=== PATIENT | male | born 1950 | race Caucasian/White ===

== ENCOUNTER → 2017-06-20 | Outpatient (CLI) | payer OTHER ==
[2017-06-20 12:37] LABS: CALCIUM 10.4 mg/dl (8.5-10.1)
[2017-06-20 13:40] LABS: CALCIUM URINE 13.6 mg/dl
== END | disposition home or self-care (01) ==
LOC: C.LAB1850 10:10
PROVIDERS: ATTEND Internal Medicine Endocrinology, Diabetes & Metabolism
DX: E83.52 Hypercalcemia (principal)

== ENCOUNTER → 2017-07-12 | Outpatient (CLI) | payer OTHER ==
--- NOTE | 2017-07-19 10:57 | CODING QUERY MEDICAL NECESSITY ---
CQSUPPORTING DIAGNOSIS NEEDED A supporting diagnosis is required for the test/procedure performed on this patient in order for us to be reimbursed by the patient's insurance. Please provide a supporting diagnosis for the following test/procedure listed below next to the test name along with your signature. *If there is no additional diagnosis for this patient that would support the following test/procedure please document that below next to the test/procedure. Test(s)/Procedure(s) that require a supporting diagnosis: DOS 07/12/17 BONE DENSITY TEST Provider Signature: Date: Thank you Holly [facility] Information Management Once completed, please kindly fax back to [phone] For questions please call [phone]
== END | disposition home or self-care (01) ==
LOC: C.MAMM 07:55
PROVIDERS: ATTEND Internal Medicine Endocrinology, Diabetes & Metabolism
DX: E83.52 Hypercalcemia (principal)

== ENCOUNTER → 2017-08-08 | Outpatient (CLI) | payer OTHER ==
--- NOTE | 2017-08-08 09:47 | DIAGNOSTIC IMAGING REPORT ---
EXAMINATION: RENAL ULTRASOUND CLINICAL HISTORY: E83.52 hypercalcemia COMPARISON STUDY: FINDINGS: The right kidney measures 11.5 cm. The left kidney measures 11.1 cm. There is no evidence of hydronephrosis. There is a 4.7 cm exophytic upper pole right renal cyst. There are no shadowing foci suspicious for calculi. No bladder abnormalities are visualized. Bilateral ureteral jets were visualized. IMPRESSION : 1. 4.7 cm right renal cyst 2. No renal calculi identified ultrasonographically. Electronically signed by: Jt Cronin M.D. 08/08/2017 9:46 AM Dictated Date/Time: 08/08/2017 9:44 AM
== END | disposition home or self-care (01) ==
LOC: C.ULTR 09:18
PROVIDERS: ATTEND Internal Medicine Endocrinology, Diabetes & Metabolism
DX: E83.52 Hypercalcemia (principal)